=== PATIENT | female | born 1970 | race Caucasian/White ===

== ENCOUNTER 2024-04-27 12:07 | Emergency (ER) | payer MEDICARE, SELFPAY ==
[2024-04-27 12:15] VITALS: BP 148/95; BMI 35.4
[2024-04-27 12:56] LABS: % Basophils 0.4 % (0-2); % Eosinophils 0.2 % (0-6); % Immature Granulocytes 0.4 % (0-0.5); % Lymphocytes 17.8 % (20.5-51.1); % Monocytes 5.1 % (1.7-9.3); % Neutrophils 76.1 % (42.2-75.2); Absolute Basophils 0.1 10^3/uL (0-0.2); Absolute Immature Granulocytes 0.1 10^3/uL (0-0.05); Absolute Lymphocytes 2.4 10^3/uL (1.2-3.4); Absolute Monocytes 0.7 10^3/uL (0.1-0.6); Absolute Neutrophils 10.2 10^3/uL (1.4-6.5); Hematocrit 41.1 % (37.0-47.0); Hemoglobin 13.5 g/dL (12.0-16.0); Mean Corp Hgb Conc. 32.8 g/dL (33.0-37.0); Mean Corpuscular Hgb 29.9 pg (27.0-31.0); Mean Corpuscular Volume 90.9 fL (81.0-99.0); Mean Platelet Volume 9.2 fL (7.4-10.4); Nucleated Red Blood Cells % 0 %; Platelet Count 387 10^3/uL (130-400); Red Blood Cell Count 4.52 10^6/uL (4.20-5.40); Red Cell Dist. Width 13.8 % (11.5-14.5); White Blood Cell Count 13.4 10^3/uL (4.8-10.8)
--- NOTE | 2024-04-27 13:18 | ED.GENMED ---
History of Present Illness
General
Chief Complaint: Crisis Evaluation
Time Seen by Provider: 04/27/24 12:43
History of Present Illness
History of Present Illness:
53-year-old female with substance abuse presenting for suicidal thoughts. Patient presents by police. Patient had allegedly went to her ex-boyfriend's house. The ex-boyfriend called the police, and they found meth and marijuana on the patient.
Patient subsequently said that she had Tez ideations, was brought to the emergency department for further evaluation. Denies any specific plan. Denies attempts to harm herself in the past. Does note that she takes medications for psychiatric
issues, has been compliant. Patient would like to seek help. Denies acute medical complaints of chest pain or difficulty breathing. Denies any recent fever or illness.
Phy Exam
Physical Exam
Physical Exam:
General: Well-appearing, no clinical signs of dehydration, nontoxic and in no acute distress
HEENT: protecting airway
Neck: appears supple
CV: Normal heart rate
Resp: No accessory muscle use, no increased work of breathing
Abd: no distension
Extremities: No deformities, no swelling
Neuro: alert, no focal neurologic deficit
: deferred
Rectal: deferred
Psych: Normal affect
Skin: Intact
Course
Orders/Labs/Results
Orders:
Orders
04/27/24 12:23
1:1 Observation - Suicide/ Violent Behavior As Directed
Crisis Consult Urgent
Reason for Consult: SI
04/27/24 12:28
Crisis Consult Urgent
Reason for Consult: SI
04/27/24 12:29
Alcohol Urgent
Basic Metabolic Panel Urgent
Complete Blood Count/With Diff Urgent
Fentanyl, Urine Urgent
Urine Drug Abuse Screen Urgent
Date Specimen was Collected: 04/27/24
Time Specimen was Collected: 12:28
Abnormal Lab Results
04/27/24
12:29
WBC 13.4 H 10^3/uL
(4.8-10.8)
MCHC 32.8 L g/dL
(33.0-37.0)
Abs Immat Gran (auto) 0.1 H 10^3/uL
(0-0.05)
Absolute Neuts (auto) 10.2 H 10^3/uL
(1.4-6.5)
Absolute Monos (auto) 0.7 H 10^3/uL
(0.1-0.6)
Neutrophils % 76.1 H %
(42.2-75.2)
Lymphocytes % 17.8 L %
(20.5-51.1)
Chloride 108 H mmol/L
(98-107)
Carbon Dioxide 19 L mmol/L
(22-30)
BUN 19 H mg/dl
(7-17)
Glucose 126 H mg/dl
(70-99)
Ur Amphetamines Screen Positive H
(Negative)
U Methamphetamines Scrn Positive H
(Negative)
U Marijuana (THC) Screen Positive H
(Negative)
04/27/24 12:29
04/27/24 12:29
Vital Signs
Initial and Last Documented VS:
Initial Vital Signs
Temp Pulse Resp BP Pulse Ox
99.1 F 84 18 148/95 95
04/27/24 12:15 04/27/24 12:15 04/27/24 12:15 04/27/24 12:15 04/27/24 12:15
Last Documented Vital Signs
Temp Pulse Resp BP Pulse Ox
99.1 F 84 18 148/95 95
04/27/24 12:15 04/27/24 12:15 04/27/24 12:15 04/27/24 12:15 04/27/24 12:15
MDM/Problems Addressed
MDM/Problems Addressed:
53-year-old homeless female presenting for suicidal ideation. Vital signs on arrival are normal.
On exam patient is resting comfortably, no acute distress or discomfort. She is nontoxic, answering questions appropriately. Patient currently under a 201. Plan for laboratory analysis and crisis evaluation for potential placement.
14:00 -patient is positive for methamphetamines. When crisis tried to evaluate, patient kept falling asleep. They will reassess once more sober regarding psychiatric/substance
18:45 -patient accepted to [place]. Pending transportation.
*Critical Care Note
Total Time (30-74mins, 75-104mins- exclusive of procedures): Not Applicable
ED Attending Note
-
Portions of this chart may have been created with voice recognition software.� Occasional wrong word or��sound alike� substitutions may have occurred due to the inherent limitations of voice recognition software.
Discharge Plan
Departure
Referrals:
UNKNOWN - PT NOT,INTERVIEWE [Family Provider] -
Interventions
Interventions:
*Risk Screen - Suicide Last Done: 04/27/24 12:15
*General Assessment Last Done: 04/27/24 12:15
*Neglect/Abuse Screening Last Done: 04/27/24 12:15
ED- Fall Risk Assessment Last Done: 04/27/24 12:15
*ED COVID-19 Vaccine History Last Done: 04/27/24 12:15
ED-Psychological Assessment Last Done: 04/27/24 12:15
Discharge Date and Time
Print Language: ALBANIAN
[2024-04-27 13:27] LABS: Amphetamines Positive (Negative); Barbiturates Negative (Negative); Benzodiazepines Negative (Negative); Buprenorphine Negative (Negative); Cocaine Negative (Negative); Marijuana Positive (Negative); Methadone Negative (Negative); Methamphetamines Positive (Negative); Opiates Negative (Negative); Phencyclidine Negative (Negative); Tricyclic Antidepressants Negative (Negative)
[2024-04-27 13:47] LABS: Fentanyl, Urine Negative (Negative)
[2024-04-27 13:48] LABS: Blood Urea Nitrogen 19 mg/dl (7-17); Calcium 10.2 mg/dl (8.4-10.2); Carbon Dioxide 19 mmol/L (22-30); Chloride 108 mmol/L (98-107); Estimated Creatinine Clearance 82 ml/min; Glucose 126 mg/dl (70-99); Potassium 4.1 mmol/L (3.5-5.1); Sodium 141 mmol/L (135-145); eGFR > 60.00
[2024-04-27 13:49] LABS: Alcohol None Detected
[2024-04-27 20:00] VITALS: BP 169/81
== END 2024-04-27 20:01 ==
LOC: EMR 12:07
PROVIDERS: Emergency Medicine; EMERGENCY PHYSICIAN Student in an Organized Health Care Education/Training Program
DX: R45.851 Suicidal ideations (principal); F19.10 Other psychoactive substance abuse, uncomplicated; Z59.00 Homelessness unspecified
CPT/HCPCS: 99285; 80048; 80306; 80307; 82077; 85025